=== PATIENT | male | born 1985 | race Hispanic/Latino ===

== ENCOUNTER 2018-05-08 18:16 | Inpatient (IN) | payer MEDICAID ==
--- NOTE | 2018-05-08 19:25 | ED PDOC ---
HPI: Psych/Substance Abuse Time Seen by Provider: 05/08/18 18:25 Chief Complaint (Nursing): Psychiatric Evaluation Chief Complaint (Provider): Psychiatric Evaluation History Per: Patient History/Exam Limitations: no limitations Associated Symptoms: Anxiety, Paranoia Additional Complaint(s): 32 y/o male with history of paranoia and anxiety who is compliant with his medications presents to the ED for psychiatric evaluation. Patient reports he was reading on the internet about [employer] mind control experiments. He got more paranoid and anxious and he texted his old psychiatrist asking if he was included in that kind of research. Amber GOMEZ and his parents showed up to his place because his psychiatrist reported to them that he was psychiatrically unstable; however, he was not brought to the hospital at that time and was deemed stable. Today however, paramedics showed up and he had to come to the ER for evaluation. Patient reports he talked to his psychiatrist, Dr. Abdon Baumann, today and is set to have an appointment on Thursday for evaluation. Patient denies hallucinations as well as suicidal or homicidal ideation. PMD: None Psychiatrist: Abdon Baumann Past Medical History Reviewed: Historical Data, Nursing Documentation, Vital Signs Vital Signs: Last Vital Signs Temp 98.3 F 05/08/18 18:19 Pulse 88 05/08/18 18:19 Resp 18 05/08/18 18:19 BP 151/72 H 05/08/18 18:19 Pulse Ox 99 05/08/18 18:19 - Medical History PMH: Anxiety - Surgical History Surgical History: No Surg Hx - Family History Family History: States: Unknown Family Hx - Social History Current smoker - smoking cessation education provided: No Alcohol: Occasional Drugs: Denies - Home Medications Home Medications: Ambulatory Orders Medication Instructions Recorded ALPRAZolam [Xanax] 1 mg PO DAILY 05/08/18 Clonazepam [Klonopin] 2 mg PO TID 05/08/18 Dextroamphetamine/Amphetamine 60 mg PO DAILY 05/08/18 [Adderall 30 mg Tablet] QUEtiapine [Seroquel] 100 mg PO DAILY 05/08/18 Quetiapine Fumarate [Seroquel] 400 mg PO HS 05/08/18 - Allergies Allergies/Adverse Reactions: Allergies Allergy/AdvReac Type Severity Reaction Status Date / Time No Known Allergies Allergy Verified 05/08/18 18:18 Review of Systems ROS Statement: Except As Marked, All Systems Reviewed And Found Negative Psych: Positive for: Anxiety. Negative for: Suicidal ideation Physical Exam - Reviewed Nursing Documentation Reviewed: Yes Vital Signs Reviewed: Yes - Physical Exam Appears: Positive for: Non-toxic, No Acute Distress Head Exam: Positive for: ATRAUMATIC, NORMOCEPHALIC Skin: Positive for: Warm, Dry Eye Exam: Positive for: EOMI, PERRL ENT: Negative for: Pharyngeal Erythema, Tonsillar Exudate Neck: Positive for: Painless ROM, Supple Cardiovascular/Chest: Positive for: Regular Rate, Rhythm. Negative for: Murmur Respiratory: Positive for: Normal Breath Sounds. Negative for: Respiratory Distress Gastrointestinal/Abdominal: Positive for: Soft. Negative for: Tenderness Back: Positive for: Normal Inspection. Negative for: Decreased ROM Extremity: Positive for: Normal ROM. Negative for: Deformity Lymphatic: Negative for: Adenopathy Neurologic/Psych: Positive for: Alert, Mood/Affect (anxious). Negative for: Motor/Sensory Deficits - Laboratory Results Result Diagrams: 05/08/18 20:42 05/08/18 20:42 - ECG O2 Sat by Pulse Oximetry: 99 (RA) Pulse Ox Interpretation: Normal Medical Decision Making Medical Decision Making: Time: 18:43 Initial Impression: paranoid and anxiety. Needs crisis evaluation. Initial Plan: Crisis evaluation Evaluated by DAYANA Bernardo who dw Dr Benton. Pt to be admitted to hospital for decompensation of bipolar disorder Medically stable for psychiatric admission. Scribe Attestation: Documented by Taiwo Burnett acting as a scribe for Caren Schmidt MD. Provider Scribe Attestation: All medical record entries made by the Scribe were at my direction and personally dictated by me. I have reviewed the chart and agree that the record accurately reflects my personal performance of the history, physical exam, medical decision making, and the department course for this patient. I have also personally directed, reviewed, and agree with the discharge instructions and disposition. Disposition - Clinical Impression Clinical Impression: Bipolar disorder Counseled Patient/Family Regarding: Studies Performed, Diagnosis - Disposition Disposition Time: 20:00 Condition: STABLE - Pt Status Changed To: Hospital Disposition Of: Inpatient - Admit Certification Admit to Inpatient:: After my assessment, the patient will require hospitalization for at least two midnights. This is because of the severity of symptoms shown, intensity of services needed, and/or the medical risk in this patient being treated as an outpatient. - POA Present On Arrival: None
[2018-05-08 20:47] LABS: BASO # 0.1 K/uL (0.0-0.2); BASO % 0.8 % (0.0-2.0); EOS # 0.3 K/uL (0.0-0.7); EOS % 3.2 % (0.0-4.0); HEMOGLOBIN 13.7 g/dL (12.0-18.0); LYMPH # 3.8 K/uL (1.0-4.3); LYMPH % 43.3 % (20.0-40.0); MEAN CELL VOLUME 80.7 fl (80.0-94.0); MEAN CORPUSCULAR HEMOGLOBIN 27.2 pg (27.0-31.0); MEAN CORPUSCULAR HGB CONC 33.7 g/dL (33.0-37.0); MEAN PLATELET VOLUME 7.2 fl (7.2-11.7); MONO # 0.6 K/uL (0.0-0.8); MONO % 6.9 % (0.0-10.0); NEUT % 45.8 % (50.0-75.0); NRBC % 0.1 % (0.0-0.0); RBC 5.03 Mil/uL (4.40-5.90); RED CELL DISTRIBUTION WIDTH 13.2 % (11.5-14.5); WHITE BLOOD COUNT 8.7 K/uL (4.8-10.8)
[2018-05-08 21:03] LABS: BENZODIAZEPINES, UR NEGATIVE (NEGATIVE)
[2018-05-08 21:07] LABS: ALB/GLOB RATIO 1.3 (1.0-2.1); ALBUMIN 4.1 g/dL (3.5-5.0); ALT/SGPT 35 U/L (21-72); AST/SGOT 25 U/L (17-59); BLOOD UREA NITROGEN 7 mg/dl (9-20); CALCIUM 9.4 mg/dL (8.4-10.2); GFR NON-AFRICAN AMERICAN > 60
[2018-05-08 21:23] LABS: BARBITURATES, UR NEGATIVE (NEGATIVE)
[2018-05-08 21:24] LABS: OPIATES, UR NEGATIVE (NEGATIVE); PHENCYCLIDINE, UR NEGATIVE (NEGATIVE)
[2018-05-08] MEDS ORDERED: DiphenhydrAMINE 50 mg/ml Inj IM PRN (22:17)
[2018-05-08] MEDS ORDERED: Magnesium Hydroxide Susp 30 ml UD PO PRN (22:17)
[2018-05-08] MEDS ORDERED: Alum-Mag Hydrox-Simethicone Susp (30 mL) PO PRN (22:17)
[2018-05-08 22:54] VITALS: O2SAT 100
[2018-05-08 22:59] VITALS: RESP 18
--- NOTE | 2018-05-08 23:02 | PCM.BM ---
<SedrickYesenia Linton - Last Filed: 05/08/18 23:00> Treatment Plan Problems - Problems identified on initial assessmt Anxiety Date Initiated: 05/08/18 Time Initiated: 23:01 Assessment reference: NA Status: Active Altered sleep patterns Date Initiated: 05/08/18 Time Initiated: 23:01 Assessment reference: NA Status: Active Medication nonadherence Date Initiated: 05/08/18 Time Initiated: 23:01 Assessment reference: NA Status: Active Treatment assets and liabiliti Patient Assests: cooperative, ADL independent, physically healthy, good support system, negotiates basic needs, cognitively intact Patient Liabilities: live alone, substance abuse, other (never worked, supported by his parents) - Milieu Protocol Maintain good personal hygiene: daily Encourage regular showers, daily Remind patient to perform daily oral care, daily Assist patient to perform ADL's Conduct patient checks and document Observation sheet: Q15 minutes Maintain personal safety: every shift Educate patient to report safety concerns to staff, every shift Monitor environment for contraband/sharps Medication safety: Monitor for expected outcome, potential side effects: every shift, Assess barriers to learning: every shift, Assess readiness for medication education: every shift <Kay Eddy - Last Filed: 05/10/18 17:13> Treatment assets and liabiliti Patient Assests: adapts well, cooperative, educated (Pt. reports having a high school education.), ADL independent, physically healthy, good support system (Pt. reports having a loving and supportive relationship with parents. ), negotiates basic needs, financial stabiity (Pt. reports father has been paying pts rent for several years. Pt. significantly emotionally and financially dependent on family. Pt. reports limited employment hx.), cognitively intact Patient Liabilities: live alone, financial problems (Pt financially dependent on parents. ), substance abuse (Pt. reported using meth at age 15 and not again until week prior to admission. Pt. reports hx of heavy drinking (early/mid 20's). Pt. currently denies ETOH abuse.), other Family Contact Family involvement: Family/SO is involved Family contact: Patient agrees to contact, Family has been contacted by patient, Telephone contact initiated by staff Family contact name: Rico(father) [phone] Family contacted how many times per week?: 2 Family contact comment: Cooperer placed call to pts father using alternate contact number (Rico [phone]). Cooperer provided clinical updates regarding pts progress on 3NP, 48 hour notice, and anticipated discharge of 05/11. Cooperer in formed pts father of tx teams concerns regarding the high dosages of Xanax, Klonopin, and Adderal that pt. was taking prior to becoming non-adherent. Psychoeducation regarding risks of long-term use of said medications on pts depression and anxiety provided. Cooperer emphasized dangers of abruptly stopping these medications (seizures/withdrawal) without proper gradual titration by a psychiatrist. Cooperer explained that given these concerns, it is imperative that Dr. Hathaway speak with pts outpatient psychiatrist Dr. Abdon Baumann prior to pts discharge, so that concerns and discharge recommendations can be discussed appropriately. Pts father expressed understanding of the above and denied having concerns regarding pts discharge, expressing commitment to encourage pt. to adhere with tx. Pts father reported that he will attempt to contact Dr. Baumann and provide him with writers numbers. Cooperer to contact pts father on 05/11 to provide updates and schedule pick-up for discharge. - Outside Agency Agency 1 Care involvment: Following patient during stay, Information-sharing, Other Agency contact name: Dr. Abdon Baumann Agency contact number: [phone] - Goals for Treatment Patient goals for treatment: Patient to continue stabilization on 3NP through medication management and group/supportive therapy to eliminate paranoia and address sxs of depression. Patient to be encouraged to attend groups regularly to promote self-awareness, sobriety, reality testing and improve insight, compliance, coping skills and self-esteem. Patient to be provided with referral for appropriate level of aftercare to reduce risk of future hospitalizations and ensure safety in the community. Pt. denying all psychiatric sxs at time of tx team. Pt. identified primary tx goal as being discharged in order to continue tx with outpatient psychiatrist. Discharge/Continuing Care - Education Needs Education Needs: Family Medication, Family Diagnosis/Disease Process, Family Coping Skills, Family Aftercare Safety Plan, Patient Medication, Patient Diagnosis/Disease Process, Patient Coping Skills, Patient Community resources, Patient Aftercare Safety Plan - Discharge Discharge Criteria: Tolerates medication w/o severe side effects, Free of Suicidal thoughts, Free of paranoid thoughts, Normal sleep pattern, Ability to care for self, No longer exhibiting s/s of withdrawal Discharge to:: Home - Treatment Team Participation Patient/Family/SO Statement: 05/10/18 17:19 Patient brought into tx team this morning to discuss progress on 3NP and tx goals. Pt. reported significant improvement since admission as exhibited by elimination of paranoia and AH. Pt. reported using meth at age 15 and not again until week prior to admission and expressed remorse, stating I cant believe I did it. Ill never do that stuff again. Pt. denied experiencing psychotic sxs while under the influence but did report worsening paranoia on the days flowing use, believing he was a victim of mind control after reading an article about an experiment conducted by the [employer] in the 1970s. Pt. able to participate in lula [employer] orientation independently, stating It sounds so crazy now. Pt. identified abrupt non-adherence with medications 2-3 months ago as primary stressor contributing to acute onset of sxs. Affect: broad; brighter than upon admission. Insight fair. Coping skills/Judgment mildly impaired. Pt. denied SI/HI and was able to contract for safety on 3NP. Pt. presented as future oriented and discharge focused, requesting to be discharged to continue with outpatient psychiatrist. Pt. reported strong family/social supports. Risks on continue substance abuse on pts mental health and safety discussed at length. Psychoeducation regarding risks of long-term use of Klonopin, Xanax, and Adderall on pts depression and anxiety provided. Tx team emphasized dangers of abruptly stopping these medications (seizures/withdrawal) without proper gradual titration by a psychiatrist. Pt. superficially receptive to feedback. Pt. provided consent for father and outpatient psychiatrist. Discussed with Family/SO: Yes Was Patient/Family/SO present at Treatment Team Meeting: Yes <Rakesh Hathaway - Last Filed: 05/11/18 09:06> - Diagnosis (1) Bipolar disorder Status: Acute Interventions: 05/11/18 09:05 psychotherapy, pharmacotherapy
[2018-05-09 08:21] LABS: T4 5.74 ug/dl (5.5-11.0)
--- NOTE | 2018-05-09 09:44 | PCM.PSYCH ---
Initial Psychiatric Evaluation - Initial Psychiatric Evaluation Type of Admission: Voluntary Legal Status: Capacity Chief Complaint (in patient's own words): "I just need to get back on my medication." Patient's Reaction to Hospitalization: HPI: 32 yo male, w/ h/o Bipolar Disorder (as per father, patient denies), was sent by mobile crisis after he called his psychiatrist expressing concerns that he may be part of a [employer] experiment, in the context of restarting to use Crystal Meth last week. Patient reports that he has not been compliant Seroquel x 2 months and has intermittently compliant with Xanax and Klonopin. He reports that he has been taking Adderal 60 mg Daily. He reports currently feeling depressed and anxious and was tearful on interview. He reports that he heard AH of faint voices that he could not distinguish two days ago. He denies current AH/VH/SI/HI. He denies current concerns that he is part of an experiment. Patient want to restart Seroquel as he feels it was effective in the past. Psychoeducation provided that Seroquel can cause or worsen metabolic syndrome. Additional collateral from there ER: CW (N[facility]) spoke to pt's father, Rico Andersen, whom reported that pt has a history of Bipolar Disorder. Pt's father stated that pt is being non-compliant with his medication. Pt's father reported that pt resides by himself in a studio in [place]. Pt's father stated that he decided to have pt stay at a hotel, as pt asked him to pay for a hotel to help him reduce some stresss. Pt's father stated that he thought he could help pt relax, if he paid a hotel stay for a couple of days, but he did not think pt was d ecompensating so bad. Pt's father stated that pt contacted his ex-psychiatrist via text and asked him questions about an "experiment" that took place back in the 1970s, thus subsequently, pt's ex-psychiatrist gathered some information and then contacting 911 to bring pt to the nearest emergency room to ensure pt is mentally stable. Pt's father reported that he wants to be admitted for psychiatric treatment. PPHx: History of two prior psychiatric hospitalization at [facility] in the summer 2017. Not compliant with treatment or outpatient follow-up. PMHx: Denies acute medical issues ALL: NKDA SHx: Lives in [place], financially supported by his family, +Crystal Meth Use, denies etoh, smoke 1ppd, uneployed. Current Medications: Active Medications Generic Name Dose Route Start Last Admin Trade Name Freq PRN Reason Stop Dose Admin Acetaminophen 650 mg 05/08/18 22:17 Tylenol 325mg Tab PO Q4 PRN pain level 4-7 Al Hydrox/Mg Hydrox/Simethicone 30 ml 05/08/18 22:17 Maalox Plus 30 Ml PO Q4 PRN Dyspepsia Clonazepam 0.5 mg 05/09/18 13:00 Klonopin PO TID BETHANY Diphenhydramine HCl 50 mg 05/08/18 22:17 Benadryl IM Q6 PRN Extrapyramidal S/S Unable PO Diphenhydramine HCl 50 mg 05/08/18 22:17 Benadryl PO Q6 PRN Extrapyramidal Symptoms Diphenhydramine HCl 50 mg 05/08/18 22:19 Benadryl PO HS PRN Sleep Haloperidol 5 mg 05/08/18 22:17 Haldol PO Q4 PRN Agitation Haloperidol Lactate 5 mg 05/08/18 22:17 Haldol IM Q4 PRN Agitation, Unable to Take PO Lorazepam 2 mg 05/08/18 22:17 Ativan IM Q8H PRN Anxiety/Agitation,Unable PO Lorazepam 1 mg 05/08/18 22:30 05/08/18 23:07 Ativan PO 1 mg Q8H PRN Administration Anxiety/Agitation Magnesium Hydroxide 30 ml 05/08/18 22:17 Milk Of Magnesia PO HS PRN Constipation Quetiapine Fumarate 100 mg 05/10/18 09:00 Seroquel PO DAILY [facility] Quetiapine Fumarate 100 mg 05/09/18 22:00 Seroquel PO HS BETHANY Past Psychiatric History - Past Psychiatric History Previous Treatment History: Inpatient Pertinent Medical Hx (Current Medical&Sleep Prob, Allergies): Allergies Allergy/AdvReac Type Severity Reaction Status Date / Time No Known Allergies Allergy Verified 05/08/18 18:18 ALPRAZolam [Xanax] 1 mg PO DAILY 05/08/18 Clonazepam [Klonopin] 2 mg PO TID 05/08/18 Dextroamphetamine/Amphetamine [Adderall 30 mg Tablet] 60 mg PO DAILY 05/08/18 QUEtiapine [Seroquel] 100 mg PO DAILY 05/08/18 Quetiapine Fumarate [Seroquel] 400 mg PO HS 05/08/18 Review of Systems - Psychiatric Psychiatric: Abnormal Sleep Pattern, Anxiety, Auditory Hallucinations, Depression, Hallucinations, Irritability, Mood Swings Mental Status Examination - Personal Presentation Personal Presentation: Looks stated age, Obese - Affect Affect: Constricted - Motor Activity Motor Activity: Calm - Reliability in Providing Information Reliability in Providing Information: Fair - Speech Speech: Organized, Coherent - Mood Mood: Depressed, Anxious - Formal Thought Process Formal Thought Process: No Impairment - Hallucinations/Delusions Additional comments: Denies AH/VH/acute paranoia - Obsessions/Compulsions Obsessions: No Compulsions: No - Cognitive Functions Orientation: Person, Place, Situation, Time Sensorium: Alert Attention/Concentration: Attentive Judgement: Imparied, as evidence by: Poor judgement Memory: Recent intact, as evidence by: Ability to recall events of the day, Remote intact, as evidenced by: Abilit to recall sig. life events, Remote intact, as evidenced by: Ability to recall historical events - Risk Risk: Diminished functioning - Strength & Assets Inventory Strength & Assets Inventory: Family support, Cooperative - Limitations Limitations: Living alone DSM 5 DX - DSM 5 DSM 5 Diagnosis: Bipolar Disorder; Methamphetamine Use Disorder - Recommended/Plan of Treatment Treatment Recommendations and Plan of Treatment: Bipolar Disorder; Methamphetamine Use Disorder -Admit to psychiatry unit -Restart Klonopin at a lower dose; will monitor for benzo withdrawal -Restart Seroquel -Stop Adderall -Medicine consult -Individual and group therapy -Obtain collateral history -Disposition planning Projected ELOS: 5-8 days Discharge Plan and Discharge Criteria: Discharge patient when he is psychiatrically stable - Smoking Cessation Smoking Cessation Initiated: Yes
--- NOTE | 2018-05-09 10:24 | RAD ---
Date of service: 05/08/2018 HISTORY: clearance COMPARISON: No prior. TECHNIQUE: Chest PA and lateral FINDINGS: LUNGS: No active pulmonary disease. PLEURA: No significant pleural effusion identified. No pneumothorax apparent. CARDIOVASCULAR: No aortic atherosclerotic calcification present. Normal cardiac size. No pulmonary vascular congestion. OSSEOUS STRUCTURES: No significant abnormalities. VISUALIZED UPPER ABDOMEN: Normal. OTHER FINDINGS: None. IMPRESSION: No active disease.
--- NOTE | 2018-05-09 16:11 | CP.PCM.CON ---
History of Present Illness - History of Present Illness History of Present Illness: 32 yo male with history of bipolar do admitted to psyche unit because of depression and anxiety. Review of Systems - Review of Systems All systems: reviewed and no additional remarkable complaints except (aside from those mentioned above, 12 point system review were negative by me) Past Patient History - Tetanus Immunizations Tetanus Immunization: Unknown - Past Social History Smoking Status: Heavy Smoker > 10 Cigarettes Daily Chewing Tobacco Use: No Cigar Use: No Alcohol: Occasional Drugs: Methamphetamine - CARDIAC Hx Cardiac Disorders: No Hx Hypertension: No - PULMONARY Hx Tuberculosis: No - NEUROLOGICAL HX Cerebrovascular Accident: No Hx Seizures: No - HEMATOLOGICAL/ONCOLOGICAL Hx Cancer: No Hx Human Immunodeficiency Virus (HIV): No - GENITOURINARY/GYNECOLOGICAL Hx Sexually Transmitted Disorders: No - PSYCHIATRIC Hx Anxiety: Yes Hx Substance Use: (crystal meth twice) - SURGICAL HISTORY Hx Tonsillectomy: Yes - ANESTHESIA Hx Anesthesia: Yes Hx Anesthesia Reactions: No Hx Malignant Hyperthermia: No Has any member of the family had a problem w/ anesthesia?: No Meds Allergies/Adverse Reactions: Allergies Allergy/AdvReac Type Severity Reaction Status Date / Time No Known Allergies Allergy Verified 05/08/18 18:18 - Medications Medications: Current Medications Acetaminophen (Tylenol 325mg Tab) 650 mg PO Q4 PRN PRN Reason: pain level 4-7 Al Hydrox/Mg Hydrox/Simethicone (Maalox Plus 30 Ml) 30 ml PO Q4 PRN PRN Reason: Dyspepsia Clonazepam (Klonopin) 0.5 mg PO TID [facility] Last Admin: 05/09/18 12:56 Dose: 0.5 mg Diphenhydramine HCl (Benadryl) 50 mg IM Q6 PRN PRN Reason: Extrapyramidal S/S Unable PO Diphenhydramine HCl (Benadryl) 50 mg PO Q6 PRN PRN Reason: Extrapyramidal Symptoms Diphenhydramine HCl (Benadryl) 50 mg PO HS PRN PRN Reason: Sleep Haloperidol (Haldol) 5 mg PO Q4 PRN PRN Reason: Agitation Haloperidol Lactate (Haldol) 5 mg IM Q4 PRN PRN Reason: Agitation, Unable to Take PO Lorazepam (Ativan) 2 mg IM Q8H PRN PRN Reason: Anxiety/Agitation,Unable PO Lorazepam (Ativan) 1 mg PO Q8H PRN PRN Reason: Anxiety/Agitation Last Admin: 05/08/18 23:07 Dose: 1 mg Magnesium Hydroxide (Milk Of Magnesia) 30 ml PO HS PRN PRN Reason: Constipation Nicotine (Nicoderm Cq) 1 patch TD DAILY [facility] Last Admin: 05/09/18 11:34 Dose: 1 patch Quetiapine Fumarate (Seroquel) 100 mg PO DAILY [facility] Quetiapine Fumarate (Seroquel) 100 mg PO HS [facility] Physical Exam - Constitutional Appears: No Acute Distress - Head Exam Head Exam: ATRAUMATIC - Eye Exam Eye Exam: absent: Scleral icterus - ENT Exam ENT Exam: Mucous Membranes Moist - Neck Exam Neck exam: Negative for: Meningismus - Respiratory Exam Respiratory Exam: absent: Rales, Rhonchi, Wheezes, Respiratory Distress - Cardiovascular Exam Cardiovascular Exam: REGULAR RHYTHM, +S1, +S2 - GI/Abdominal Exam GI & Abdominal Exam: Soft. absent: Tenderness - Rectal Exam Rectal Exam: Deferred - Neurological Exam Neurological exam: Alert, Oriented x3 - Psychiatric Exam Psychiatric exam: Normal Affect - Skin Skin Exam: Dry, Intact Results - Vital Signs Recent Vital Signs: Last Vital Signs Temp 97.9 F 05/09/18 09:00 Pulse 78 05/09/18 09:00 Resp 18 05/09/18 09:00 BP 141/78 05/09/18 09:00 Pulse Ox 100 05/08/18 22:00 - Labs Result Diagrams: 05/08/18 20:42 05/08/18 20:42 Labs: Laboratory Results - last 24 hr 05/08/18 05/08/18 05/08/18 20:42 20:42 20:42 WBC 8.7 RBC 5.03 Hgb 13.7 Hct 40.6 MCV 80.7 MCH 27.2 MCHC 33.7 RDW 13.2 Plt Count 226 MPV 7.2 Neut % (Auto) 45.8 L Lymph % (Auto) 43.3 H Garfield % (Auto) 6.9 Eos % (Auto) 3.2 Baso % (Auto) 0.8 Neut # (Auto) 4.0 Lymph # (Auto) 3.8 Garfield # (Auto) 0.6 Eos # (Auto) 0.3 Baso # (Auto) 0.1 Sodium 141 Potassium 3.9 Chloride 100 Carbon Dioxide 29 Anion Gap 16 BUN 7 L Creatinine 0.8 Est GFR ( Amer) > 60 Est GFR (Non-Af Amer) > 60 Random Glucose 105 Hemoglobin A1c Calcium 9.4 Total Bilirubin 0.4 AST 25 ALT 35 Alkaline Phosphatase 53 Total Protein 7.1 Albumin 4.1 Globulin 3.0 Albumin/Globulin Ratio 1.3 Triglycerides Cholesterol LDL Cholesterol Direct HDL Cholesterol Thyroxine (T4) TSH 3rd Generation Urine Opiates Screen Negative Urine Methadone Screen Negative Ur Barbiturates Screen Negative Ur Phencyclidine Scrn Negative Ur Amphetamines Screen Positive H U Benzodiazepines Scrn Negative U Oth Cocaine Metabols Negative U Cannabinoids Screen Negative Alcohol, Quantitative < 10 05/09/18 05/09/18 06:30 06:30 WBC RBC Hgb Hct MCV MCH MCHC RDW Plt Count MPV Neut % (Auto) Lymph % (Auto) Garfield % (Auto) Eos % (Auto) Baso % (Auto) Neut # (Auto) Lymph # (Auto) Garfield # (Auto) Eos # (Auto) Baso # (Auto) Sodium Potassium Chloride Carbon Dioxide Anion Gap BUN Creatinine Est GFR ( Amer) Est GFR (Non-Af Amer) Random Glucose Hemoglobin A1c 5.2 Calcium Total Bilirubin AST ALT Alkaline Phosphatase Total Protein Albumin Globulin Albumin/Globulin Ratio Triglycerides 126 Cholesterol 181 LDL Cholesterol Direct 138 H HDL Cholesterol 33 Thyroxine (T4) 5.74 TSH 3rd Generation 1.32 Urine Opiates Screen Urine Methadone Screen Ur Barbiturates Screen Ur Phencyclidine Scrn Ur Amphetamines Screen U Benzodiazepines Scrn U Oth Cocaine Metabols U Cannabinoids Screen Alcohol, Quantitative Assessment & Plan (1) Depression Status: Acute Comment: psyche is managing
--- NOTE | 2018-05-10 15:15 | PCM.PYCHPN ---
Psychiatric Progress Note - Psychiatric Progress Note Patient seen today, length of contact: pt evaluated discussed with team chart reviewed Patient Chief Complaint: I get a lot of anxiety Problems Identified/Issues Discussed: pt evaluated with treatment team, reported feeling increasingly anxious and depressed, educated the pt about the possible side effects of amphetamines withdrawals,also motivational therapy provided in reference to the high dose of benzodiazepines he has been using and their possible short and intermediate negative side effects on his mental status advised pt about starting inpatient rehab for amphetamine use pt declined, he requested discharge with plan to follow up with private psychiatrist pt denied any current suicidal or homicidal ideation , denied perceptual disturbances, no reported side effects of seroquel DSM 5 Symptoms Update: panic disorder depression amphetamine use disorder Medication Change: Yes (seroquel 200mg qhs ) Medical Record Reviewed: Yes Mental Status Examination - Cognitive Function Orientation: Person, Place, Situation, Time Memory: Intact Attention: WNL Concentration: WNL Association: WNL Fund of Knowledge: WN Decription of patient's judgement and insights: partial insight fair judgment - Mood Mood: Depressed, Anxious - Affect Affect: Constricted - Formal Thought Process Formal Thought Process: No Impairment Psychotic Thoughts and Behaviors: pt denied psychotic symptoms, non elicited - Suicidal Ideation Suicidal Ideation: No - Homicidal Ideation Homicidal Ideation: No Goal/Treatment Plan - Goal/Treatment Plan Need for Continued Stay: Severe depression anxiety, Discharge may exacerbated symptoms Progress Toward Problem(s) and Goals/Treatment Plan: seroquel 200mg qhs klonopin 0.5mg tid/ will be gradually down titrated motivational therapy message left for private psychiatrist Dr Baumann to discuss treatment plan [phone] [phone]
[2018-05-11 10:39] VITALS: BP 148/77; PULSE 84; TEMP 97.5
--- NOTE | 2018-05-11 11:12 | PCM.PYCHDC ---
Mental Status Examination - Mental Status Examination Orientation: Person, Place, Situation Memory: Intact Mood: Neutral Affect: Broad Speech: Appropriate Attention: WNL Concentration: WNL Association: WNL Fund of Knowledge: WNL Formal Thought Process: No Impairment Description of patient's judgement and insight: partial insight fair judgment Psychotic Thoughts and Behaviors: pt denied psychotic symptoms, non elicited Suicidal Ideation: No Current Homicidal Ideation?: No Discharge Summary - Discharge Note Reason for Hospitalization: 2 yo male, w/ h/o Bipolar Disorder (as per father, patient denies), was sent by mobile crisis after he called his psychiatrist expressing concerns that he may be part of a [employer] experiment, in the context of restarting to use Crystal Meth last week. Patient reports that he has not been compliant Seroquel x 2 months and has intermittently compliant with Xanax and Klonopin. He reports that he has been taking Adderal 60 mg Daily. He reports currently feeling depressed and anxious and was tearful on interview. He reports that he heard AH of faint voices that he could not distinguish two days ago. He denies current AH/VH/SI/HI. He denies current concerns that he is part of an experiment. Patient want to restart Seroquel as he feels it was effective in the past. Psychoeducation provided that Seroquel can cause or worsen metabolic syndrome. Additional collateral from there ER: [facility] ([facility]) spoke to pt's father, Rico Andersen, whom reported that pt has a history of Bipolar Disorder. Pt's father stated that pt is being non-compliant with his medication. Pt's father reported that pt resides by himself in a studio in [facility]. Pt's father stated that he decided to have pt stay at a hotel, as pt asked him to pay for a hotel to help him reduce some stresss. Pt's father stated that he thought he could help pt relax, if he paid a hotel stay for a couple of days, but he did not think pt was decompensating so bad. Pt's father stated that pt contacted his ex-psychiatrist via text and asked him questions about an "experiment" that took place back in the 1970s, thus subsequently, pt's ex-psychiatrist gathered some information and then contacting 911 to bring pt to the nearest emergency room to ensure pt is mentally stable. Pt's father reported that he wants to be admitted for psychiatric treatment. Consultations:: List each consultation separately and include: 1. Reason for request. 2. Findings. 3. Follow-up Summary of Hospital Course include:: 1. Description of specific treatment plan utilized for patients during their course of treatmen. 2. Summarize the time- course for resolution of acute symptoms and/or regressed behaviors. 3. Describe issues identified and worked on during hospitalization. 4. Describe medication utilized. 5. Describe medical problems identified and treated. 6. Reassessment of suicide risk Summary of Hospital Course: pt on admission presented with anxious mood and affect, pt has been on xanax by private psychiatrist , that was changed to klonopin 1mg tid and downtitrated to 0.5mg tid pt was educated about the addictive nature of xanax and possible rebound anxiety motivational therapy provided in reference to amphetamine abuse / advised referral to inpatient rehab but pt declined pt was started on seroquel 200mg qhs for mood stabilization pt signed 48 hours notice requesting to be discharged treatment plan was discussed over the phone with private psychiatrist Dr Abdon Baumann, did not verbalize any concerns about pt being danger to self or others pt was discharged with plan to see private psychiatrist on Sunday 05/14 pt on discharge, mental status was stable, denied any current suicidal or homicidal ideation, denied perceptual disturbances, not danger to sef or others - Diagnosis (1) Bipolar disorder Current Visit: Yes Status: Acute - Final Diagnosis (DSM 5) Condition upon Discharge: STABLE DSM 5: bipolar disorder amphetamine abuse Disposition: HOME/ ROUTINE Follow-up Treatment Plan: seroquel 200mg qhs klonopin 0.5mg tid/ will be gradually down titrated motivational therapy message left for private psychiatrist Dr Baumann to discuss treatment plan [phone] [phone] - Antipsychotic Medications Pt discharged on 2 or more routine antipsychotic medications: No
== END 2018-05-11 12:19 | disposition home or self-care (01) | DRG 430 ==
LOC: H.ER 18:16 → H.ERHOLD 20:20 → H.PSYCH 22:13
PROVIDERS: ADMIT Psychiatry & Neurology Psychiatry; ATTEND Psychiatry & Neurology Psychiatry
PROC: GZHZZZZ Group Psychotherapy (ICD-10-PCS; principal; 2018-05-08)
PROC: HZ57ZZZ Individual Psychotherapy for Substance Abuse Treatment, Motivational Enhancement (ICD-10-PCS; 2018-05-08)
PROC: HZ56ZZZ Individual Psychotherapy for Substance Abuse Treatment, Psychoeducation (ICD-10-PCS; 2018-05-08)
DX: F31.9 Bipolar disorder, unspecified (principal); F15.10 Other stimulant abuse, uncomplicated; Z91.14 Patient's other noncompliance with medication regimen; Z91.19 Patient's noncompliance with other medical treatment and regimen; F17.210 Nicotine dependence, cigarettes, uncomplicated